=== PATIENT | male | born 1985 | race Caucasian/White ===

== ENCOUNTER 2019-10-17 06:20 | Emergency (ER) | payer SELFPAY ==
[2019-10-17 06:26] VITALS: BMI 28.2
--- NOTE | 2019-10-17 06:31 | ECG_ITS ---
[facility] Test Date: 2019-10-17 Pat Name: Vikas Matthews Department: Room: Gender: Male Technical Consultant: : 1985 Requested By: Adelfo Mandujano Order Number: [id number] Tamara MD: Chin Tripathi M.D. Measurements Intervals [place] Rate: 86 P: 58 MT: 154 QRS: 45 QRSD: 100 T: 61 QT: 375 QTc: 449 Interpretive Statements SINUS RHYTHM No previous ECG available for comparison Electronically Signed On 10-18-2019 16:23:47 CDT by Chin Tripathi M.D. [id number]
--- NOTE | 2019-10-17 06:31 | XR_ITS ---
WS: [id number] PORTABLE CHEST HISTORY: dyspnea/cough COMPARISON: 10/12/2007 Lungs are clear and well expanded. No pleural effusion or pneumothorax. Cardiac size: Normal. Mediastinum/Aorta: Normal mediastinum. No osseous abnormality seen. XR/XR chest 1V portable [id number] IMPRESSION: Unremarkable portable chest.
--- NOTE | 2019-10-17 06:33 | W.ED.GIBLEED ---
HPI - GI Bleed General: Chief complaint: General Medical Stated complaint: THREW UP BLOOD 10/14,NO APPETITE Time Seen by Provider: 10/17/19 06:24 History of Present Illness: HPI Narrative: 34-year-old male presents emergency room with report of vomiting blood. He has been having this intermittently reports for about a year. He has not been evaluated anytime over the weekend he had 2 episodes of mucousy bloody vomit show me a picture on his cell phone it is not hardeep blood it is not totally discolored the toilet water. He does occasionally have some melanotic stool. Has not been taking any jbuy-vud-mzfexbi medicines for it is not noticed any triggering or relieving events. Denies having chest pain is not really having any abdominal pain at this time he does have it at times when he is vomiting blood as he has epigastric discomfort. Denies any other illnesses recently no fever sweats or chills no respiratory illnesses recently. MD complaint: blood streaked emesis Onset (ago): year(s) (1) Pain Consistency: intermittent Severity: mild Relieving factors: none Exacerbating factors: none Associated symptoms: Reports abdominal pain; Denies easy bruising, fever(s), headache(s), nausea, poor appetite, rash, syncope, vomiting or weakness Treatments Prior to Arrival: none Review of Systems Const: Denies: fever(s) ENMT: Denies: throat pain, ear or mastoid pain, nasal discharge or nasal congestion Card: Denies: syncope Resp: Denies: dyspnea, productive cough or non-productive cough GI: Reports: abdominal pain; Denies: nausea or vomiting : Denies: flank pain, dysuria, urinary frequency or urinary urgency Skin/Breast: Denies: rash Neuro: Denies: headache(s) Gerhard/Lymph: Denies: easy bruising PFS ED PFSH: Medical History (Updated 10/17/19 @ 07:49 by Adelfo Goss DO) No significant past medical history Surgical History (Updated 10/17/19 @ 07:01 by Adelfo Goss DO) No significant past surgical history Social History (Updated 10/17/19 @ 07:02 by Adelfo Goss DO) Smoking and tobacco status: current every day smoker cigarettes Packs smoked per day: 1 Years cigarettes smoked: 15 Number of cigarettes per day: >20 Alcohol intake: current Alcohol intake frequency: 3 or more drinks per day Alcohol type: hard liquor Physical Exam Const: COMMON NORMALS: no acute distress GENERAL APPEARANCE: cooperative and comfortable ORIENTATION/CONSCIOUSNESS: Yes awake, Yes oriented to person, Yes oriented to place and Yes oriented to time HENMT: COMMON NORMALS: normocephalic, atraumatic, hearing grossly normal bilaterally, external ears normal, EAC's normal, TM's normal bilaterally, Normal nasal mucous membranes and turbinates present, moist oral mucous membranes and oropharynx normal HEAD & SCALP: normocephalic and atraumatic NOSE: Normal nasal mucous membranes and turbinates present EXTERNAL EAR: Yes external ears normal EXTERNAL AUDITORY CANAL: EAC's normal TYMPANIC MEMBRANE: TM's normal bilaterally Eye: COMMON NORMALS: Equal, round and reactive pupils present, EOMs intact bilaterally, conjunctivae normal and no scleral icterus CONJUNCTIVA: Yes conjunctivae normal PUPIL: Yes Equal, round and reactive pupils present Neck/C-Spine: COMMON NORMALS: full ROM, no lymphadenopathy, supple and no JVD Lymph: LYMPHATIC: no lymphadenopathy noted and no lymphedema noted Resp: COMMON NORMALS: normal respiratory effort, No retractions, No use of accessory muscles and clear to auscultation bilaterally AUSCULTATION: clear to auscultation bilaterally Cardio: COMMON NORMALS: no JVD, regular rate, regular rhythm and No murmurs present (Cardio) RATE: regular rate RHYTHM: regular rhythm GI: COMMON NORMALS: Soft to palpation and No hepatosplenomegaly present AUSCULTATION: Yes normoactive bowel sounds PALPATION: Yes Soft to palpation, No Tenderness to palpation present (GI), No Guarding due to palpation present (GI) and Yes No hepatosplenomegaly present Extremity: COMMON NORMALS: normal to inspection, capillary refill normal, no clubbing, cyanosis or edema, no calf tenderness and no pedal edema Neuro: SENSORIUM/ORIENTATION: Yes oriented to person, Yes oriented to place and Yes oriented to time Skin: COMMON NORMALS: no rashes or lesions noted GENERAL SKIN EXAM: no rashes or lesions noted Course Vital Signs: Vital signs: Vital Signs Temperature 97.9 F 10/17/19 06:39 Pulse Rate 83 10/17/19 07:58 Respiratory Rate 18 10/17/19 07:58 Blood Pressure 172/113 10/17/19 07:58 Pulse Oximetry 100 10/17/19 07:58 MDM - GI Bleed MDM Narrative: Medical decision making narrative: Reviewed findings with the patient hemoglobin is stable we will go ahead and discharge home again to start him on lisinopril he had significant elevation of blood pressure while he was here we will also start on pantoprazole set him up for EGD and for primary care for follow-up on hypertension. If has worsening of his hematemesis return to the emergency room. Lab Data: Labs: Lab Results 10/17/19 10/17/19 10/17/19 Range/Units 06:52 06:52 06:52 WBC 6.8 (4.0-10.0) 10^3/ uL RBC 5.27 (4.1-5.3) 10^6/u L Hgb 16.9 H (11.7-16.6) g/dL Hct 48.7 (42.0-52.0) % MCV 92.4 (80-94) fL MCH 32.1 (28.0-34.0) pg MCHC 34.7 (30.0-36.0) g/dL RDW 12.9 (12.1-15.1) % Plt Count 310 (130-400) 10^3/c mm MPV 9.6 (7.4-10.4) fL Neut % (Auto) 59.4 % Lymph % (Auto) 28.4 % Kleberg % (Auto) 11.1 % Eos % (Auto) 0.6 % Baso % (Auto) 0.4 % Neut # (Auto) 4.02 (1.8-7.7) 10^3/u L Lymph # (Auto) 1.9 (0.8-4.8) 10^3/u L Kleberg # (Auto) 0.8 (0.2-0.9) 10^3/u L Eos # (Auto) 0.0 (0.0-0.8) 10^3/u L Baso # (Auto) 0.0 (0.0-0.1) 10^3/u L Nucleated RBC % (a uto) 0 % Nucleated RBCs # 0.0 /100WBC PT 12.80 (10.5-13.3) SECO NDS INR 0.93 (0.8-1.2) APTT 28.7 (23.9-36.7) SECO NDS Sodium (136-145) mmol/L Potassium (3.5-5.1) mmol/L Chloride (98-107) mmol/L Carbon Dioxide (22-29) mmol/L Anion Gap (5-19) BUN (6-20) mg/dL Creatinine (0.7-1.2) mg/dL GFR Calculation (90-130) mL/min Glucose (65-115) mg/dL Calculated Osmolal ity (285-295) mOsm/k g Lactic Acid 1.1 (0.5-2.2) mmol/L Calcium (8.5-10.5) mg/dL Total Bilirubin (0.15-1.2) mg/dL AST (0-40) U/L ALT (0-41) U/L Alkaline Phosphata se (40-130) IU/L Total Protein (6.6-8.7) g/dL Albumin (3.5-5.2) g/dL Globulin (1.3-4.6) g/dL 10/17/19 Range/Units 06:52 WBC (4.0-10.0) 10^3/ uL RBC (4.1-5.3) 10^6/u L Hgb (11.7-16.6) g/dL Hct (42.0-52.0) % MCV (80-94) fL MCH (28.0-34.0) pg MCHC (30.0-36.0) g/dL RDW (12.1-15.1) % Plt Count (130-400) 10^3/c mm MPV (7.4-10.4) fL Neut % (Auto) % Lymph % (Auto) % Kleberg % (Auto) % Eos % (Auto) % Baso % (Auto) % Neut # (Auto) (1.8-7.7) 10^3/u L Lymph # (Auto) (0.8-4.8) 10^3/u L Kleberg # (Auto) (0.2-0.9) 10^3/u L Eos # (Auto) (0.0-0.8) 10^3/u L Baso # (Auto) (0.0-0.1) 10^3/u L Nucleated RBC % (a uto) % Nucleated RBCs # /100WBC PT (10.5-13.3) SECO NDS INR (0.8-1.2) APTT (23.9-36.7) SECO NDS Sodium 136 (136-145) mmol/L Potassium 3.4 L (3.5-5.1) mmol/L Chloride 99 (98-107) mmol/L Carbon Dioxide 24 (22-29) mmol/L Anion Gap 16.4 (5-19) BUN 11 (6-20) mg/dL Creatinine 0.8 (0.7-1.2) mg/dL GFR Calculation 109.4 (90-130) mL/min Glucose 125 H (65-115) mg/dL Calculated Osmolal ity 280 L (285-295) mOsm/k g Lactic Acid (0.5-2.2) mmol/L Calcium 9.6 (8.5-10.5) mg/dL Total Bilirubin 1.0 (0.15-1.2) mg/dL AST 27 (0-40) U/L ALT 33 (0-41) U/L Alkaline Phosphata se 120 (40-130) IU/L Total Protein 7.7 (6.6-8.7) g/dL Albumin 4.8 (3.5-5.2) g/dL Globulin 2.9 (1.3-4.6) g/dL Discharge Plan Discharge Patient Disposition: Home, Self-Care Clinical Impression: Gastrointestinal hemorrhage with hematemesis, Hypertension Condition: Stable Prescriptions: New Protonix 40 mg tablet,delayed release (DR/EC) 40 mg PO DAILY Qty: 30 RF: 0 lisinopril 10 mg tablet 10 mg PO DAILY Qty: 30 RF: 0 Discharge Orders: Discharge Order (Routine); Ordered 10/17/19 Ordered By: Adelfo Goss Discharge Diet: As Directed Discharge Activity: Resume usual activity Activity Restrictions/Additional Instructions: Case management will call to make an appointment with surgery for a EGD (endoscopy of the esophagus and stomach). They will also make arrangements for you to see a primary care physician for management of your blood pressure. Return to emergency room if you have any worsening symptoms. Discharge Date/Time: 10/17/19 07:58 Coding Level of Care Code ED Compensation Consulting Manager for Chg Fwd Exam Comprehensive
[2019-10-17 06:39] VITALS: BP 173/117; PULSE 72; RESP 18; TEMP 36.6; O2SAT 98
[2019-10-17 07:02] LABS: Basophils % 0.4 %; Eosinophils % 0.6 %; Hematocrit 48.7 % (42.0-52.0); Hemoglobin 16.9 g/dL (11.7-16.6); Lymphocytes # 1.9 10^3/uL (0.8-4.8); Lymphocytes % 28.4 %; Mean Corpuscular HGB Conc 34.7 g/dL (30.0-36.0); Mean Corpuscular Hemoglobin 32.1 pg (28.0-34.0); Mean Corpuscular Volume 92.4 fL (80-94); Mean Platelet Volume 9.6 fL (7.4-10.4); Monocytes # 0.8 10^3/uL (0.2-0.9); Monocytes % 11.1 %; Neutrophils # 4.02 10^3/uL (1.8-7.7); Neutrophils % 59.4 %; Nucleated Red Blood Cells % 0 %; Platelet Count 310 10^3/cmm (130-400); Red Blood Count 5.27 10^6/uL (4.1-5.3); Red Cell Distribution Width 12.9 % (12.1-15.1); White Blood Count 6.8 10^3/uL (4.0-10.0)
[2019-10-17 07:11] LABS: INR 0.93 (0.8-1.2)
[2019-10-17 07:12] LABS: Partial Thromboplastin Time 28.7 SECONDS (23.9-36.7)
[2019-10-17 07:21] LABS: Alanine Aminotransferase 33 U/L (0-41); Albumin Level 4.8 g/dL (3.5-5.2); Alkaline Phosphatase 120 IU/L (40-130); Anion Gap 16.4 (5-19); Aspartate Amino Transferase 27 U/L (0-40); Blood Urea Nitrogen 11 mg/dL (6-20); Calcium 9.6 mg/dL (8.5-10.5); Carbon Dioxide 24 mmol/L (22-29); Chloride 99 mmol/L (98-107); Creatinine Clr Calc Pharmacy 152.2062; Globulin 2.9 g/dL (1.3-4.6); Glomerular Filtration Rate 109.4 mL/min (90-130); Glucose 125 mg/dL (65-115); Osmolality Calculated 280 mOsm/kg (285-295); Potassium 3.4 mmol/L (3.5-5.1); Sodium 136 mmol/L (136-145); Total Protein 7.7 g/dL (6.6-8.7)
[2019-10-17 07:22] LABS: Lactic Sepsis W/Reflex 1.1 mmol/L (0.5-2.2)
[2019-10-17 07:58] VITALS: BP 172/113; PULSE 83; RESP 18; O2SAT 100
--- NOTE | 2019-10-17 13:56 | DCPLANNER ---
risk management manager had message to schedule a follow up appointment for patient with general surgery. risk management manager called [facility], spoke Roz[place], gave clinic patients information. risk management manager was told that patients information would be printed and reviewed. Clinic will call patient with appointment information.
--- NOTE | 2019-10-18 12:28 | DCPLANNER ---
Patient has a follow up appointment scheduled for Thursday, October 24, 2019 at 2:[address] Campos. Clinic will call patient with appointment information.
--- NOTE | 2019-11-10 14:35 | DCPLANNER ---
Patient had an appointment scheduled for 10.24.19 with [facility] - patient did attend the appointment.
== END 2019-10-17 07:58 | disposition home or self-care (01) ==
PROVIDERS: Emergency Provider Family Medicine
DX: K92.0 Hematemesis (principal); I10 Essential (primary) hypertension; F17.210 Nicotine dependence, cigarettes, uncomplicated
CPT/HCPCS: 12345; 71045; 80053; 83605; 85025; 85610; 85730; 93005; 99283; 99284

== ENCOUNTER → 2020-02-29 16:00 | Outpatient (BNVA) | payer SELFPAY | PROVIDERS: Visit Provider Nurse Practitioner Family | DX: Z20.828 Contact with and (suspected) exposure to other viral communicable diseases (principal) | CPT/HCPCS: 87426 ==

== ENCOUNTER 2022-06-20 08:16 | Emergency (ER) | payer SELFPAY ==
[2022-06-20 08:22] VITALS: BP 173/116; PULSE 130; RESP 22; TEMP 36.8; O2SAT 97; BMI 25.0
[2022-06-20] MEDS: ondansetron 2 mg/ML SDV 2 mL 4 MG IVP (08:56)
[2022-06-20] MEDS: morphine 4 mg/mL SDV 1 mL IVP (08:56)
--- NOTE | 2022-06-20 08:58 | ED_ITS ---
HPI - Abdominal Pain General: Chief Complaint: Abdominal Pain Stated Complaint: possible kidney stone Time Seen by Provider: 06/20/22 08:24 Source: patient Mode of arrival: ambulatory History of Present Illness: 36-year-old male presents emergency room with left-sided flank pain. He had symptoms yesterday actually went home from work early. Worsened markedly today or he is writhing in pain on arrival here. He has not had any fever sweats or chills. He has had significant mount of constipation lately and has noticed a little bit of streaking blood in the stool. Denies dysuria urgency or frequency. MD elicited complaint: flank pain Pertinent past history: none Onset (ago): day(s) (1) Pain Consistency: constant Location: L flank and Suprapubic Severity: severe Quality: sharp Radiation: suprapubic Exacerbating factors: nothing Relieving factors: nothing Associated Symptoms: Reports GI cramping, nausea and vomiting; Denies anorexia, belching, bloating, change in bowel habits, change in stool character, chills, coffee ground emesis, constipation, diarrhea, dyspepsia, dysuria, excessive flatus, fever(s), heartburn, hematochezia, hematuria, hematemesis, fecal incontinence, loose stools, melena, poor appetite and syncope Review of Systems Const: Denies: fever(s) or chills ENMT: Denies: throat pain, ear or mastoid pain, nasal discharge or nasal congestion Card: Denies: chest pain or syncope Resp: Denies: dyspnea, productive cough or non-productive cough GI: Reports: abdominal pain, nausea, vomiting and GI cramping; Denies: hematemesis, coffee ground emesis, heartburn, diarrhea, constipation, bloating, belching, excessive flatus, fecal incontinence, change in bowel habits, change in stool character, hematochezia or melena : Reports: flank pain; Denies: dysuria, urinary frequency, urinary urgency or hematuria Musc: Reports: back pain Skin/Breast: Denies: rash or pruritus PFSH ED PFSH: Medical History (Updated 06/20/22 @ 11:09 by Adelfo Goss DO) Hypertension Social History (Updated 06/20/22 @ 09:01 by Adelfo Goss DO) Smoking and tobacco status: current every day smoker Physical Exam Const: GENERAL APPEARANCE: cooperative ORIENTATION/CONSCIOUSNESS: Yes awake, Yes oriented to person, Yes oriented to place and Yes oriented to time HENMT: COMMON NORMALS: normocephalic, atraumatic and hearing grossly normal bilaterally HEAD & SCALP: normocephalic and atraumatic Resp: COMMON NORMALS: normal respiratory effort, No retractions, No use of accessory muscles and clear to auscultation bilaterally AUSCULTATION: clear to auscultation bilaterally Cardio: COMMON NORMALS: regular rate, regular rhythm and No murmurs present (Cardio) RATE: regular rate RHYTHM: regular rhythm GI: COMMON NORMALS: Soft to palpation and No hepatosplenomegaly present AUSCULTATION: Yes normoactive bowel sounds PALPATION: Yes Soft to palpation, No Tenderness to palpation present (GI), No Guarding due to palpation present (GI) and Yes No hepatosplenomegaly present Extremity: COMMON NORMALS: normal to inspection, capillary refill normal, no clubbing, cyanosis or edema, no calf tenderness and no pedal edema Neuro: SENSORIUM/ORIENTATION: Yes oriented to person, Yes oriented to place and Yes oriented to time Skin: COMMON NORMALS: no rashes or lesions noted GENERAL SKIN EXAM: no rashes or lesions noted Course Vital Signs: Vital signs: Vital Signs Temperature 98.2 F 06/20/22 08:22 Pulse Rate 96 06/20/22 10:16 Respiratory Rate 22 H 06/20/22 08:22 Blood Pressure 222/128 06/20/22 10:16 Pulse Oximetry 97 06/20/22 10:16 Oxygen Delivery Me thod 06/20/22 08:22 MDM - Abdominal Pain Medical Decision Making CT shows 3 mm stone we are able to get his pain under control with the use of Toradol. Prior to the Toradol called in contact Dr. Pérez given the size of stone its location mid distal ureter he felt it was okay to give the Toradol. We will discharge patient home strain urine. Follow-up with urology. Return if pain poorly controlled. Medical Records I reviewed the patient's medical records. Lab Data I reviewed the patient's lab results. 06/20/22 08:40 06/20/22 08:40 Labs/Radiology: Radiology Impressions Abdomen/Pelvis CT 06/20/22 09:03 IMPRESSION: Mild left hydronephrosis due to a 3 mm calculus in the distal left ureter. Other nonobstructing lower pole intrarenal calculi on the left Laboratory Results WBC 10.0 10^3/uL (4.0-10.0) 06/20/22 08:40 RBC 4.92 10^6/uL (4.1-5.3) 06/20/22 08:40 Hgb 16.1 g/dL (11.7-16.6) 06/20/22 08:40 Hct 46.8 % (42.0-52.0) 06/20/22 08:40 MCV 95.1 fl (80-94) H 06/20/22 08:40 MCH 32.7 pg (28.0-34.0) 06/20/22 08:40 MCHC 34.4 g/dL (30.0-36.0) 06/20/22 08:40 RDW 13.3 % (12.1-15.1) 06/20/22 08:40 Plt Count 412 10^3/cmm (130-400) H 06/20/22 08:40 MPV 9.9 fL (7.4-10.4) 06/20/22 08:40 Neut % (Auto) 54.2 % 06/20/22 08:40 Lymph % (Auto) 32.0 % 06/20/22 08:40 Twiggs % (Auto) 11.7 % 06/20/22 08:40 Eos % (Auto) 1.3 % 06/20/22 08:40 Baso % (Auto) 0.5 % 06/20/22 08:40 Neut # (Auto) 5.40 10^3/uL (1.8-7.7) 06/20/22 08:40 Lymph # (Auto) 3.2 10^3/uL (0.8-4.8) 06/20/22 08:40 Twiggs # (Auto) 1.2 10^3/uL (0.2-0.9) H 06/20/22 08:40 Eos # (Auto) 0.1 10^3/uL (0.0-0.8) 06/20/22 08:40 Baso # (Auto) 0.1 10^3/uL (0.0-0.1) 06/20/22 08:40 Nucleated RBC % (auto) 0 % 06/20/22 08:40 Nucleated RBCs # 0.0 /100WBC 06/20/22 08:40 Sodium 143 mmol/L (136-145) 06/20/22 08:40 Potassium 4.1 mmol/L (3.5-5.1) 06/20/22 08:40 Chloride 104 mmol/L (98-107) 06/20/22 08:40 Carbon Dioxide 24 mmol/L (22-29) 06/20/22 08:40 Anion Gap 19.1 (5-19) H 06/20/22 08:40 BUN 13 mg/dL (6-20) 06/20/22 08:40 Creatinine 0.9 mg/dL (0.7-1.2) 06/20/22 08:40 GFR Calculation 94.4 mL/min (90-130) 06/20/22 08:40 Glucose 112 mg/dL (65-115) 06/20/22 08:40 Calculated Osmolality 297 mOsm/kg (285-295) H 06/20/22 08:40 Calcium 9.4 mg/dL (8.5-10.5) 06/20/22 08:40 Discharge Plan Discharge Patient Disposition: Home Clinical Impression: Calculus of kidney, Hypertension Prescriptions: New promethazine 25 mg tablet 25 mg PO Q6H PRN (Reason: nausea and vomiting) Qty: 20 0RF tamsulosin 0.4 mg capsule 0.4 mg PO DAILY Qty: 20 0RF oxycodone 5 mg tablet 5 mg PO Q6H PRN (Reason: pain) Qty: 30 0RF Discharge Orders: Discharge ED (Routine); Ordered 06/20/22 Ordered By: Adelfo Goss Referrals: Nayan Mojica MD [Primary Care Provider] - Discharge Diet: Usual diet Discharge Activity: Increase activity as tolerated Patient Instructions: Opioid Safety, Pain Management Activity Restrictions/Additional Instructions: You are seen today for left flank pain. CT showed a 3 mm stone on the left. Strain your urine. Use pain medications regularly to keep pain from worsening. Case management make arrangements for follow-up with urology. Coding Level of Care Code ED Dishcloth Folder for Horacio Schwartz
[2022-06-20 09:03] LABS: Basophils # 0.1 10^3/uL (0.0-0.1); Basophils % 0.5 %; Eosinophils # 0.1 10^3/uL (0.0-0.8); Eosinophils % 1.3 %; Hematocrit 46.8 % (42.0-52.0); Hemoglobin 16.1 g/dL (11.7-16.6); Lymphocytes # 3.2 10^3/uL (0.8-4.8); Mean Corpuscular HGB Conc 34.4 g/dL (30.0-36.0); Mean Corpuscular Hemoglobin 32.7 pg (28.0-34.0); Mean Corpuscular Volume 95.1 fl (80-94); Mean Platelet Volume 9.9 fL (7.4-10.4); Monocytes # 1.2 10^3/uL (0.2-0.9); Monocytes % 11.7 %; Neutrophils % 54.2 %; Nucleated Red Blood Cells % 0 %; Platelet Count 412 10^3/cmm (130-400); Red Blood Count 4.92 10^6/uL (4.1-5.3); Red Cell Distribution Width 13.3 % (12.1-15.1)
--- NOTE | 2022-06-20 09:03 | CT_ITS ---
WS: [id number] EXAMINATION: CT kidney stone [id number] REASON FOR EXAM: flank pain COMPARISON: None available. ORDER DATE: 06/20/2022 9:06 AM TOTAL EXAM DLP: 378.[address] scans at [facility] use at least one of these dose optimization techniques: automated e xposure control; mA and/or kV adjustment per patient size (includes targeted exams where dose is matc hed to clinical indication); or iterative reconstruction. TECHNIQUE: Axial CT imaging of the abdomen and pelvis performed without oral or intravenous contrast. 2-D Reformatted images are obtained. Evaluation of solid organs, bowel wall and vascular structures is limited due to the lack of IV contr ast. FINDINGS: LOWER THORAX: The lung bases are clear. LIVER: Normal in appearance as visualized. BILIARY: Normal appearance of the gallbladder with no biliary ductal dilatation. as visualized. SPLEEN: Normal in appearance as visualized. PANCREAS: Normal in appearance ADRENALS: Normal in appearance KIDNEYS: Normal renal outlines. There are 2, 2 mm calculi in the lower pole of the left kidney with mild left hydronephrosis. There is a distal ureteral calculus 3 mm in size perhaps 2 cm from the uret erovesical junction as noted on axial image 175 GI TRACT: The bowel is normal in caliber. No free intraperitoneal air is present. APPENDIX: Normal in appearance ABDOMINAL WALL: Unremarkable RETROPERITONEUM/LYMPH/MESENTERIC NODES: No retroperitoneal or mesenteric lymphadenopathy identified. VESSELS: The great vessels of the abdomen are unremarkable. PELVIC ORGANS: There is a decompressed under distended urinary bladder, unable to evaluate the signi ficance of the wall thickening. BONES: The visualized osseous structures are intact. No suspicious osteolytic or osteoblastic lesions . . CT/CT kidney stone [id number] IMPRESSION: Mild left hydronephrosis due to a 3 mm calculus in the distal left ureter. Othe r nonobstructing lower pole intrarenal calculi on the left
[2022-06-20] MEDS: morphine 4 mg/mL SDV 1 mL 6 MG IVP (09:06)
[2022-06-20 09:13] LABS: Anion Gap 19.1 (5-19); Blood Urea Nitrogen 13 mg/dL (6-20); Calcium 9.4 mg/dL (8.5-10.5); Carbon Dioxide 24 mmol/L (22-29); Chloride 104 mmol/L (98-107); Glomerular Filtration Rate 94.4 mL/min (90-130); Glucose 112 mg/dL (65-115); Osmolality Calculated 297 mOsm/kg (285-295); Potassium 4.1 mmol/L (3.5-5.1); Sodium 143 mmol/L (136-145)
--- NOTE | 2022-06-20 09:43 | PC.PHAR ---
pt states suppose to be taking losartan 50mg daily last filled 02/11/22 30d/s pt states not taken for months-pt states takes no rx or otc meds
[2022-06-20 10:16] VITALS: BP 222/128; PULSE 96; O2SAT 97
[2022-06-20] MEDS: ketorolac 30 mg/mL INJ IVP (10:25)
[2022-06-20] MEDS: HYDROmorphone 1 mg/mL INJ 1 mL IVP (11:45)
[2022-06-20 11:53] VITALS: BP 175/128; PULSE 108; RESP 18; O2SAT 98
--- NOTE | 2022-06-23 11:22 | DCPLANNER ---
Addendum entered by Yudy Tomas 06/24/22 08:17: Patient had a follow up appointment scheduled with urology for 06.24.22 - patient did attend appointment Original Note: senior site manager had message to schedule a follow up appointment for patient with urology. senior site manager sent patients information to the front office staff at urology. Patients information will be reviewed. Clinic will call patient with appointment information.
== END 2022-06-20 11:54 | disposition home or self-care (01) ==
PROVIDERS: Emergency Provider Family Medicine; PCP Family Medicine
DX: N13.2 Hydronephrosis with renal and ureteral calculous obstruction (principal); I10 Essential (primary) hypertension; F17.200 Nicotine dependence, unspecified, uncomplicated
CPT/HCPCS: 74176; 80048; 85025; 96374; 96375; 99285; J1170; J1885; J2270; J2405

== ENCOUNTER 2022-06-24 07:26 | Outpatient (CLI) | payer SELFPAY ==
--- NOTE | 2022-06-24 07:36 | XR_ITS ---
WS: [id number] Exam: XR KUB [id number] Date/Time of Exam: 06/24/2022 7:38 AM Reason For Exam: STONE No bowel obstruction or free air. A small crescent-shaped left pelvic calcification noted which proba rivera represents the patient's known left UVJ stone. No sign of organ enlargement. Bony structures are intact. XR/XR KUB [id number] IMPRESSION: 1. No acute abdominal finding. 2. 4 mm crescent-shaped left pelvic calcification probably representing the pat ient's known left UVJ stone.
== END 2022-06-24 07:27 | disposition home or self-care (01) ==
PROVIDERS: PCP Family Medicine; Visit Provider Urology
DX: N20.0 Calculus of kidney (principal)
CPT/HCPCS: 74018

== ENCOUNTER 2022-07-02 11:43 | Outpatient (CLI) | payer SELFPAY ==
--- NOTE | 2022-07-02 12:08 | XRR_ITS ---
PROCEDURE INFORMATION: Exam: XR Abdomen Exam date and time: 07/02/2022 12:20 PM Age: 36 years old Clinical indication: Condition or disease; Kidney or ureter condition; Calculus (stone) in kidney; Patient HX: Follow up for kidney stones. ; Additional info: Stones, sadi @ [facility] on 07/02/22 @11:15am appt to follow TECHNIQUE: Imaging protocol: Radiologic exam of the abdomen. Views: Frontal supine view of the abdomen. 1 View. COMPARISON: 1. CR XR KUB [id number] 06/24/2022 7:38 AM 2. CR XR chest 1V portable [id number] 10/17/2019 6:45 AM FINDINGS: Gastrointestinal tract: No dilated gas-filled loops of bowel. Organs: The previously demonstrated distal left ureteral calculus appears to still be present, measuring approximally 6 mm x 2 mm in size and at the expected location of the left ureterovesical junction. Phleboliths present in the pelvis. Bones/joints: No acute osseous abnormality. XR/XR KUB [id number] IMPRESSION: 6 mm x 2 mm left ureterovesical junction calculus.
== END 2022-07-02 11:44 | disposition home or self-care (01) ==
PROVIDERS: PCP Family Medicine; Visit Provider Urology
DX: N20.9 Urinary calculus, unspecified (principal)
CPT/HCPCS: 74018

== ENCOUNTER 2022-07-30 11:33 | Outpatient (CLI) | payer SELFPAY ==
--- NOTE | 2022-07-30 11:40 | XR_ITS ---
WS: [id number] KUB, AP view, 07/30/2022 Clinical Data: STONES Comparison: KUB, 07/02/2022 Findings: No abnormal intraabdominal masses or calcifications are seen. There is no dilatated small bowel or ev idence of obstruction. The previous left UVJ calculus is not seen. XR/XR KUB [id number] Impression: Negative KUB.
== END 2022-07-30 11:34 | disposition home or self-care (01) ==
PROVIDERS: PCP Family Medicine; Visit Provider Urology
DX: N20.9 Urinary calculus, unspecified (principal)
CPT/HCPCS: 74018